=== PATIENT | male | born 1960 | race Caucasian/White ===

== ENCOUNTER → 2016-07-14 | Outpatient (CLI) | payer OTHER ==
--- NOTE | 2016-07-14 13:10 | DI ---
MRI LUMBAR SPINE SCAN WITHOUT IV CONTRAST, 07/14/2016 9:51 AM: Clinical History: Low back pain. Previous Exam: None. Technique: Sagittal and axial T2 weighted; sagittal T1 weighted and T2 STIR; and axial PD. There are compression fractures of L2 and L3 that show moderately increased signal intensity on the s agittal STIR sequence indicating these are acute or more likely subacute. There is loss of height by approximately 50% at L2 and probably 20-25% at L3. There is anterior wedging at T10 that is chronic. The remaining lumbar vertebral bodies are of normal height. There is disc space narrowing at L4-5 and L5-S1 with a grade 1 spondylolisthesis at L5-S1. The cord terminates at T12 and the conus medullaris is normal. There are bulging but not herniated discs without canal or neural foraminal stenosis from T10-11 through L1-2. L2-3 has a left lateral extradural defect secondary to epidural fat but there i s no canal or neural foraminal stenosis. There is a bulging but not herniated disc. No bony fragments protrude into the canal as a result of the compression fractures at L2 and L3. L3-4 has a circumfere ntially bulging but not herniated disc without canal or neural foraminal stenosis. L4-5 has a left an terolateral moderate disc herniation that potentially can cause impingement on the left L5 nerve root . In addition, there is severe left neural foraminal stenosis. There is no canal or right neural fora galileo stenosis. L5-S1 has a grade 1 spondylolisthesis with a bulging but not herniated disc without c anal or neural foraminal stenosis. Readin. There is a left anterolateral disc herniation at L4-5 that is causing severe left neural foramina l stenosis and this may produce left L4 nerve root symptoms. In addition, the disc herniation could p otentially impinge on the left L5 nerve root as it passes through the lateral recess of L5. There is no canal or right neural foraminal stenosis. 2. The disc spaces from T10-11 through L3-4 and at L5-S1 all have bulging but not herniated discs wi thout canal or neural foraminal stenosis. There is a left lateral extradural collection of epidural f at that is causing an extrinsic deformity of the sac at L2-3 but there is no canal stenosis. There is a grade 1 spondylolisthesis at L5-S1. 3. There are compression fractures at T10, L2, and L3. The T10 compression fracture is old. There is modest increased signal intensity in the L2 and L3 vertebral bodies indicating these are subacute an d less likely acute compression fractures. There is a 50% loss of height at L2 and a 20-25% loss of h eight at L3. No bone fragments protrude into the canal.
== END ==
LOC: MRI 09:40
PROVIDERS: ATTEND Chiropractor
DX: M54.5 Low back pain (principal); M43.17 Spondylolisthesis, lumbosacral region; M51.26 Other intervertebral disc displacement, lumbar region
CPT/HCPCS: 72148